=== PATIENT | female | born 1975 | race Caucasian/White ===

== ENCOUNTER 2020-10-31 12:26 | Emergency (ER) | payer OTHER ==
[2020-10-31 14:51] LABS: HEMOGLOBIN 12.6 gm/dl (12.3-15.3); RED BLOOD COUNT 3.99 M/UL (4.00-5.10); WHITE BLOOD COUNT 5.2 K/UL (4.5-11.0)
[2020-10-31 15:39] LABS: BUN/CREATININE RATIO 9 (0-10)
[2020-11-02 19:11] LABS: CHLAMYDIA TRACHOMATIS, NAA Negative (Negative); NEISSERIA GONORRHOEAE, NAA Negative (Negative)
[2020-11-03 06:12] LABS: HBSAG SCREEN Positive (Negative); HEP A AB, IGM Negative (Negative); HEP B CORE AB, IGM Positive (Negative); HEP C VIRUS AB <0.1 (0.0-0.9)
== END 2020-11-01 20:00 | disposition left against medical advice (07) ==
LOC: ER1 12:26
PROVIDERS: Physician Assistant; Physician Assistant Medical
DX: B17.9 Acute viral hepatitis, unspecified (principal); I10 Essential (primary) hypertension; F17.200 Nicotine dependence, unspecified, uncomplicated; Z20.822 Contact with and (suspected) exposure to COVID-19
CPT/HCPCS: 71045; 80053; 80074; 80307; 81001; 82150; 82247; 82248; 83615; 83690; 84703; 85025; 85610; 87210; 96374; 96375; 96376; 99284; G0480; J2270; J2405; J7030; Q9967; U0002